=== PATIENT | female | born 1935 | race Caucasian/White ===

== ENCOUNTER → 2018-06-18 11:34 | Emergency (ER) | payer MEDICARE ==
[~2018-06-18 11:34] MED LIST: Folic Acid TAB* 1 MG PO ONE; Methotrexate TAB* 2.5 MG PO ONE; Warfarin TAB(*) 5 MG PO ONE
[2018-06-18 14:21] VITALS: BP 139/63
--- NOTE | 2018-06-18 15:46 | ED ---
Upper Extremity Pain - HPI Summary HPI Summary: A 83 y/o female accompanied by her son presents to the ED c/o left shoulder pain. According to the son, the patient lost her a couple weeks ago. They have a home in [place], [place] but also live in [place] during the winter. Her son have brought her home so they could look after her. The patient has suffered some memory loss. She hasn't been taking her medications for 2 weeks. She is now c/o left shoulder pain as of last night. She was bending over when the pain started. He noted that the patient can use the arm/shoulder, and the pain has been getting better on its own with time. The patient does nibble on food and eats throughout the day. She also drinks a lot of tea. He stated that she actually as gained some weight. He stated that someone is with her every night and she can get around in the morning on her own. She denies any CP or SOB. Patient was taken off blood thinners due to major bleeding previously. - History of Current Complaint Chief Complaint: EDExtremityUpper Stated Complaint: PAIN IN LEFT SHOULDER Time Seen by Provider: 06/18/18 15:02 Hx Obtained From: Patient, Family/Manufacturing Operations Manager - SON - Allergies/Home Medications Allergies/Adverse Reactions: Allergies Allergy/AdvReac Type Severity Reaction Status Date / Time Sulfa (Sulfonamide Allergy Unknown Verified 06/18/18 14:56 Antibiotics) Reaction Details PMH/Surg Hx/FS Hx/Imm Hx Endocrine/Hematology History: Reports: Hx Anticoagulant Therapy - dvt SINCE 1979. Cardiovascular History: Reports: Hx Hypertension GI History: Reports: Other GI Disorders - chronic constipation Musculoskeletal History: Reports: Hx Osteoporosis Sensory History: Reports: Hx Contacts or Glasses Opthamlomology History: Reports: Hx Contacts or Glasses Neurological History: Reports: Hx Headaches Psychiatric History: Denies: Hx of Violent Episodes Against Others - Surgical History Surgery Procedure, Year, and Place: none per Infectious Disease History: No Infectious Disease History: Denies: Traveled Outside the [place] in Last 30 Days - Family History Known Family History: Positive: Other - is not sure of family history - Social History Alcohol Use: None Substance Use Type: Reports: None Hx Tobacco Use: No Smoking Status (MU): Never Smoked Tobacco Review of Systems Negative: Fever, Chills Negative: Erythema Negative: Sore Throat Negative: Chest Pain Negative: Shortness Of Breath, Cough Negative: Abdominal Pain, Vomiting, Nausea Negative: dysuria, hematuria Positive: Other - POSITIVE: LEFT SHOULDER PAIN. Negative: Myalgia, Edema Negative: Rash Neurological: Other - NEGATIVE: DIZZINESS All Other Systems Reviewed And Are Negative: Yes Physical Exam - Summary Physical Exam Summary: Constitutional: Well-developed, Well-nourished, Alert. (-) Distressed Skin: Warm, Dry HENT: Normocephalic; Atraumatic Eyes: Conjunctiva normal Neck: Musculoskeletal ROM normal neck. (-) JVD, (-) Stridor, (-) Tracheal deviation Cardio: Rhythm regular, rate normal, Heart sounds normal; Intact distal pulses; The pedal pulses are 2+ and symmetric. Radial pulses are 2+ and symmetric. (-) Murmur Pulmonary/Chest wall: Effort normal. (-) Respiratory distress, (-) Wheezes, (-) Rales Abd: Soft, (-) epigastric tenderness, (-) Distension, (-) Guarding, (-) Rebound Musculoskeletal: (-) Edema, limited ROM of left shoulder to about 90 degrees of rotation, no meli tenderness, no brusies or swelling. Lymph: (-) Cervical adenopathy Neuro: Alert, Oriented x3 Psych: Mood and affect Normal Triage Information Reviewed: Yes Vital Signs On Initial Exam: Initial Vitals Temp Pulse Resp BP Pulse Ox 98.4 F 88 20 116/95 98 06/18/18 11:44 06/18/18 11:44 06/18/18 11:44 06/18/18 11:44 06/18/18 11:44 Vital Signs Reviewed: Yes Diagnostics - Vital Signs Vital Signs Temp Pulse Resp BP Pulse Ox 06/18/18 14:20 99.5 F 78 20 139/63 97 06/18/18 14:16 97.9 F 94 24 126/80 94 06/18/18 11:44 98.4 F 88 20 116/95 98 - Laboratory Lab Statement: Any lab studies that have been ordered have been reviewed, and results considered in the medical decision making process. - EKG 1157 Cardiac Rate: NL - 77 BPM EKG Rhythm: Sinus Rhythm - 77 BPM Summary of EKG Findings: NEGATIVE STEMI. Re-Evaluation - Re-Evaluation First Eval Re-Evaluation Time: 15:43 Comment: INQUIRED WITH SON WHO THE PATIENT'S PHYSICIAN IS IN [place]. SON DOES NOT KNOW WHICH OFFICE OR PHYSICIAN THE PATIENT WAS SEEING IN [place]. Course/Dx - Course Course Of Treatment: A 83 y/o female accompanied by her son presents to the ED c /o left shoulder pain. According to the son, the patient lost her a couple weeks ago. They have a home in [place], [place] but also live in [place] during the winter. Her son have brought her home so they could look after her. The patient has suffered some memory loss. She hasn't been taking her medications for 2 weeks. She is now c/o left shoulder pain as of last night. She was bending over when the pain started. He noted that the patient can use the arm/shoulder, and the pain has been getting better on its own with time. The patient does nibble on food and eats throughout the day. She also drinks a lot of tea. He stated that she actually as gained some weight. He stated that someone is with her every night and she can get around in the morning on her own. She denies any CP or SOB. Patient was taken off blood thinners due to major bleeding previously. Physical examination findings significant for limited ROM of left shoulder to about 90 degrees of rotation, no meli tenderness, no brusies or swelling. An EKG revealed NSR of 77 BPM, negative STEMI. No laboratory scans were done. No laboratory screens were done. In the ED course, the patient received Flovite, Methotrexate, and Warfarin. 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 She is to take Methotrexate 4 tablets per week. Take Tylenol for pain. Patient is to follow up with Dr. Le and Dr. Espitia in 2-3 days. Patient is to return to ED for any new or worsening symptoms. Patient is agreeable with this plan. - Diagnoses Provider Diagnoses: Rheumatoid arteritis Discharge - Sign-Out/Discharge Documenting (check all that apply): Patient Departure - DISCHARGE - Discharge Plan Condition: Stable Disposition: HOME Patient Education Materials: Shoulder Pain (ED) Referrals: Moe Espitia NP [Primary Care Provider] - Additional Instructions: FOLLOW UP WITH DR. LE AND DR. ESPITIA IN 2-3 DAYS. TAKE TYLENOL FOR PAIN RELIEF. TAKE 4 TABLETS OF METHOTREXATE PER WEEK. RETURN TO ED FOR ANY NEW OR WORSENING SYMPTOMS. - Attestation Statements Document Initiated by Scribe: Yes Documenting Scribe: Odin Goldsmith Provider For Whom Scribe is Documenting (Include Credential): Bernardo Thurston MD Scribe Attestation: Odin Roa, scribed for Bernardo Thurston MD on 06/18/18 at 1606. Status of Scribe Document: Ready
== END | disposition home or self-care (01) ==
LOC: ED 11:34
DX: I77.6 Arteritis, unspecified (principal); M25.512 Pain in left shoulder; Z79.01 Long term (current) use of anticoagulants; Z88.2 Allergy status to sulfonamides
CPT/HCPCS: 93005; 99282; A9270-GY; J8610